=== PATIENT | male | born 1950 | race Caucasian/White ===

== ENCOUNTER 2024-03-22 08:11 | Emergency (ER) | payer SELFPAY ==
[~2024-03-22] VITALS: Ht 180.3 cm; Wt 63.5 kg
[2024-03-22] VITALS (14 sets, daily range): BP systolic 137–184; BP diastolic 72–120
[~2024-03-22 08:11] MED LIST: CIPRO500 MG; DARVOCET-N 100100 MG OR; FLEXERIL OR; FLOMAX0.4 M1 OR; LORTAB 5/3255 MG PO; LORTAB 7.5 OR; MEDDOSEPAK PO; MELOXICAM7.5 MG PO; METHOCARBAMOL500 MG PO; NAPROXEN500 MG PO; NO HOME MEDS; PREDNISONE10 MG PO; TRAMADOL HCL50 MG PO; ULTRAM50 M1 OR; VISTARIL50 MG OR
[2024-03-22] MEDS ORDERED: KETOROLAC TROMETHAMINE 30 MG/ML SDV IV ONE (08:30)
[2024-03-22 08:45] LABS: BASO% 0.1 % (0-3); EOS% 0.6 % (0-8); HEMATOCRIT 43.9 % (39.0-50.0); HEMOGLOBIN 14.7 g/dl (14.0-18.0); IMMATURE GRANULOCYTES 0.2 % (0.0-5.0); LYMPH% 23.8 % (15-41); MEAN CORPUSCULAR HGB 33.1 pG CALC (26.0-32.0); MEAN CORPUSCULAR HGB CONC 33.5 g/dL CAL (32.0-36.0); NEUT# 6.49 thou/uL (1.82-7.42); NEUT% 65.3 % (42-76); RED BLOOD COUNT 4.44 mill/uL (4.70-6.10); RED CELL DISTRI WIDTH 14.4 % (11.5-15.5)
[2024-03-22 08:48] LABS: MEAN CELL VOLUME 98.9 fL CALC (80.0-100.0)
[2024-03-22 08:51] LABS: ALBUMIN 4.8 g/dL (3.2-5.0); CREATININE 0.9 mg/dL (0.7-1.3); POTASSIUM 4.1 mmol/l (3.5-5.1); TOTAL PROTEIN 7.7 g/dL (6.3-8.2)
[2024-03-22 08:52] LABS: BILIRUBIN, TOTAL 0.7 mg/dL (0.2-1.3)
[2024-03-22] MEDS ORDERED: LABETALOL HCL 100 MG/20 ML VIAL IV ONE (09:20)
[2024-03-22 09:24] LABS: URINE BILIRUBIN - DIPSTICK Negative (NEGATIVE); URINE BLOOD DIPSTICK Negative (NEGATIVE); URINE GLUCOSE - DIPSTICK Negative (NEGATIVE); URINE KETONE Negative (NEGATIVE); URINE LEUK ESTERASE Negative (NEGATIVE); URINE NITRITE - DIPSTICK Negative (Negative); URINE PROTEIN - DIPSTICK Trace mg/dL (NEG-TRACE); URINE UROBILINOGEN - DIPSTICK 0.2 E.U./dL (0.2)
[2024-03-22 09:27] LABS: URINE COLOR Yellow
[2024-03-22] MEDS ORDERED: TRAMADOL HYDROC50 M1 PO (10:12)
[2024-03-22] MEDS ORDERED: XANAX1 MG PO (10:12)
== END 2024-03-22 10:35 | disposition home or self-care (01) | DRG 103 ==
LOC: ED 08:11
PROVIDERS: Family Medicine
DX: R51.9 Headache, unspecified (principal); M54.2 Cervicalgia; F17.200 Nicotine dependence, unspecified, uncomplicated

== ENCOUNTER 2024-09-14 15:11 | Emergency (ER) | payer MEDICARE ==
[~2024-09-14] VITALS: Ht 180.3 cm; Wt 54.0 kg
[~2024-09-14 15:11] MED LIST changes: +TRAMADOL HYDROC50 M1 PO; +XANAX1 MG PO
[2024-09-14 15:29] VITALS: BP 135/85
[2024-09-14 15:30] VITALS: BP 137/60
[2024-09-14 15:45] VITALS: BP 131/78
[2024-09-14] MEDS ORDERED: HYDROmorphone HCL 2 MG/AMP IM ONE (15:45)
[2024-09-14] MEDS ORDERED: KETOROLAC TROMETHAMINE 30 MG/ML SDV IM ONE (15:45)
[2024-09-14] MEDS ORDERED: ORPHENADRINE CITRATE 30 MG/ML AMP IM ONE (15:45)
[2024-09-14] MEDS ORDERED: DICLOFENAC SODIUM2 % TD (15:58)
[2024-09-14] MEDS ORDERED: CYCLOBENZAPRINE10 MG PO (15:58)
[2024-09-14] MEDS ORDERED: TRAMADOL HYDROC50 M1 PO (15:59)
[2024-09-14 16:00] VITALS: BP 126/72
[2024-09-14 16:27] VITALS: BP 126/72
== END 2024-09-14 16:28 | disposition home or self-care (01) ==
LOC: ED 15:11
DX: M54.2 Cervicalgia (principal); G89.29 Other chronic pain; F17.200 Nicotine dependence, unspecified, uncomplicated
CPT/HCPCS: J1100; J1171; J2360

== ENCOUNTER 2024-09-20 17:31 | Emergency (ER) | payer MEDICARE ==
[~2024-09-20] VITALS: Ht 180.3 cm; Wt 81.6 kg
[~2024-09-20 17:31] MED LIST changes: +CYCLOBENZAPRINE10 MG PO; +DICLOFENAC SODIUM2 % TD
[2024-09-20 18:58] VITALS: BP 152/94
[2024-09-20] MEDS ORDERED: ORPHENADRINE CITRATE 30 MG/ML AMP IM ONE (19:00)
[2024-09-20] MEDS ORDERED: HYDROmorphone HCL 2 MG/AMP IM ONE (19:00)
[2024-09-20] MEDS ORDERED: KETOROLAC TROMETHAMINE 30 MG/ML SDV IM ONE (19:00)
[2024-09-20 19:01] VITALS: BP 139/85
[2024-09-20 19:30] VITALS: BP 119/73
== END 2024-09-20 19:40 | disposition home or self-care (01) ==
LOC: ED 17:31
DX: G89.4 Chronic pain syndrome (principal); F17.200 Nicotine dependence, unspecified, uncomplicated
CPT/HCPCS: J1171; J2360

== ENCOUNTER 2024-09-22 11:55 | Emergency (ER) | payer MEDICARE ==
[2024-09-22] VITALS (9 sets, daily range): BP systolic 115–144; BP diastolic 78–93
[~2024-09-22] VITALS: Ht 180.3 cm; Wt 56.0 kg
[2024-09-22] MEDS ORDERED: ONDANSETRON HCl 4 MG/2 ML SDV IV ONE (13:30)
[2024-09-22] MEDS ORDERED: SODIUM CHLORIDE 0.9% 1,000 ML IV ONE (13:30)
[2024-09-22 13:32] LABS: BASO% 0.1 % (0-3); IMMATURE GRANULOCYTES 0.2 % (0.0-5.0); LYMPH% 14.1 % (15-41); MEAN CELL VOLUME 93.9 fL CALC (80.0-100.0); MEAN CORPUSCULAR HGB 31.4 pG CALC (26.0-32.0); MEAN CORPUSCULAR HGB CONC 33.4 g/dL CAL (32.0-36.0); MONO% 4.6 % (2-13); NEUT# 9.74 thou/uL (1.82-7.42); RED BLOOD COUNT 5.42 mill/uL (4.70-6.10); RED CELL DISTRI WIDTH 13.4 % (11.5-15.5)
[2024-09-22 13:33] LABS: HEMATOCRIT 50.9 % (39.0-50.0)
[2024-09-22 13:37] LABS: URINE BLOOD DIPSTICK Trace-lysed (NEGATIVE); URINE GLUCOSE - DIPSTICK Negative (NEGATIVE); URINE KETONE Trace mg/dL (NEGATIVE); URINE LEUK ESTERASE Negative (NEGATIVE); URINE NITRITE - DIPSTICK Negative (Negative); URINE PH 6.5 (4.5-8.0); URINE PROTEIN - DIPSTICK 30 mg/dL (NEG-TRACE); URINE SPECIFIC GRAVITY 1.015; URINE UROBILINOGEN - DIPSTICK 0.2 E.U./dL (0.2)
[2024-09-22 13:40] LABS: URINE COLOR Yellow
[2024-09-22 14:20] LABS: URINE RBC 0-2 RBC/hpf (0-5); URINE WBC 0-2 WBC/hpf (0-5)
[2024-09-22 14:23] LABS: URINE HYALINE CAST MANY lpf (NONE-RARE); URINE MUCUS FEW hpf (NONE-FEW)
[2024-09-22] MEDS ORDERED: KETOROLAC TROMETHAMINE 15 MG/ML SDV IV ONE (14:30)
[2024-09-22] MEDS ORDERED: DICYCLOMINE HCL 10 MG/CAP PO ONE (14:30)
[2024-09-22 14:37] LABS: ALBUMIN 3.5 g/dL (3.2-5.0); BILIRUBIN, TOTAL 0.4 mg/dL (0.2-1.3); CREATININE 0.7 mg/dL (0.7-1.3); POTASSIUM 5.1 mmol/l (3.5-5.1); TOTAL PROTEIN 6.5 g/dL (6.3-8.2)
[2024-09-22] MEDS ORDERED: DICYCLOMINE HYD10 MG PO (15:52)
[2024-09-22] MEDS ORDERED: AMOX/K CLAV875 M1 PO (15:52)
== END 2024-09-22 16:24 | disposition home or self-care (01) ==
LOC: ED 11:55
PROVIDERS: Nurse Practitioner
DX: K57.30 Diverticulosis of large intestine without perforation or abscess without bleeding (principal); D72.829 Elevated white blood cell count, unspecified; F17.210 Nicotine dependence, cigarettes, uncomplicated; Z20.822 Contact with and (suspected) exposure to COVID-19
CPT/HCPCS: J1885; J2405

== ENCOUNTER 2024-09-26 17:28 | Emergency (ER) | payer MEDICARE ==
[~2024-09-26] VITALS: Ht 180.3 cm; Wt 72.5 kg
[~2024-09-26 17:28] MED LIST changes: +AMOX/K CLAV875 M1 PO; +DICYCLOMINE HYD10 MG PO
[2024-09-26] MEDS ORDERED: ONDANSETRON HCl 4 MG/2 ML SDV IV ONE (19:15)
[2024-09-26] MEDS ORDERED: MORPHINE SULFATE 4 MG/ML VIAL IV ONE (19:15)
[2024-09-26 19:35] VITALS: BP 165/107
[2024-09-26 19:47] LABS: BASO% 0.3 % (0-3); EOS% 0.3 % (0-8); IMMATURE GRANULOCYTES 0.1 % (0.0-5.0); LYMPH% 21.7 % (15-41); MEAN CELL VOLUME 94.2 fL CALC (80.0-100.0); MEAN CORPUSCULAR HGB 31.3 pG CALC (26.0-32.0); MEAN CORPUSCULAR HGB CONC 33.2 g/dL CAL (32.0-36.0); MONO% 4.6 % (2-13); NEUT# 6.68 thou/uL (1.82-7.42); RED BLOOD COUNT 3.96 mill/uL (4.70-6.10); RED CELL DISTRI WIDTH 13.7 % (11.5-15.5)
[2024-09-26 19:48] LABS: HEMATOCRIT 37.3 % (39.0-50.0); HEMOGLOBIN 12.4 g/dl (14.0-18.0)
[2024-09-26 19:49] LABS: URINE BILIRUBIN - DIPSTICK Negative (NEGATIVE); URINE BLOOD DIPSTICK Trace-intact (NEGATIVE); URINE COLOR Light yellow; URINE GLUCOSE - DIPSTICK Negative (NEGATIVE); URINE KETONE Negative (NEGATIVE); URINE LEUK ESTERASE Negative (NEGATIVE); URINE NITRITE - DIPSTICK Negative (Negative); URINE PROTEIN - DIPSTICK Negative (NEG-TRACE); URINE UROBILINOGEN - DIPSTICK 0.2 E.U./dL (0.2)
[2024-09-26 20:00] LABS: BILIRUBIN, TOTAL 0.3 mg/dL (0.2-1.3); CREATININE 0.8 mg/dL (0.7-1.3); TOTAL PROTEIN 7.4 g/dL (6.3-8.2)
[2024-09-26 20:03] LABS: ALBUMIN 4.3 g/dL (3.2-5.0)
[2024-09-26 20:09] VITALS: BP 185/115
[2024-09-26] MEDS ORDERED: PERCOCET 5/325M1 TAB PO (20:37)
[2024-09-26 20:50] VITALS: BP 162/87
== END 2024-09-26 20:50 | disposition home or self-care (01) ==
LOC: ED 17:28
PROVIDERS: Family Medicine
DX: R10.30 Lower abdominal pain, unspecified (principal); F17.200 Nicotine dependence, unspecified, uncomplicated
CPT/HCPCS: J2405